=== PATIENT | female | born 2000 | race Hispanic/Latino ===

== ENCOUNTER 2023-01-16 19:24 | Emergency (ER) | payer MEDICAID, OTHER ==
[~2023-01-16] VITALS: Ht 160 cm; Wt 82.6 kg
[2023-01-16 20:31] VITALS: BP 136/78
[2023-01-16 21:02] LABS: APPEARANCE,URINE CLEAR (CLEAR); BILIRUBIN,URINE NEGATIVE (NEGATIVE); COLOR,URINE LIGHT-YELLOW (YELLOW); GLUCOSE, URINE (UA) NEGATIVE (NEGATIVE); KETONES,URINE 10 mg/dL (NEGATIVE); LEUKOCYTE ESTERASE ,URINE NEGATIVE Leu/uL (NEGATIVE); NITRATE,URINE NEGATIVE (NEGATIVE); OCCULT BLOOD,URINE NEGATIVE (NEGATIVE); PROTEIN,URINE NEGATIVE (NEGATIVE); UROBILINOGEN,URINE 0.2 mg/dL (0.2-1.0)
[2023-01-16 21:09] LABS: BACTERIA,URINE RARE /HPF (None Seen); RBC,URINE 0-1 /HPF (0-1); SQUAMOUS EPITHELIAL CELL,UR RARE /HPF (0-2)
[2023-01-16 21:24] LABS: HCG,QUALITATIVE URINE NEGATIVE (NEGATIVE)
== END 2023-01-16 22:48 | disposition home or self-care (01) ==
LOC: EDH 19:24
DX: S69.82XA Other specified injuries of left wrist, hand and finger(s), initial encounter (principal); Y08.89XA Assault by other specified means, initial encounter; Y93.89 Activity, other specified; Y92.89 Other specified places as the place of occurrence of the external cause; Y99.8 Other external cause status
CPT/HCPCS: 73140; 81001; 81025